=== PATIENT | male | born 1960 | race Two or more races ===

== ENCOUNTER 2018-12-31 22:10 | Inpatient (IN) | payer OTHER ==
[~2018-12-31] VITALS: Ht 175.3 cm; Wt 61.7 kg
[2018-12-31 22:37] LABS: BASOPHILS # (AUTO) 0.1 /CMM (0.0-0.2); BASOPHILS % (AUTO) 1.1 % (0.0-2.0); EOSINOPHILS % (AUTO) 0.6 % (0.0-6.0); HEMATOCRIT 41 % (39-51); HEMOGLOBIN 13.6 g/dL (13.5-17.5); LYMPHOCYTES # (AUTO) 2.7 /CMM (0.8-4.8); LYMPHOCYTES % (AUTO) 50.2 % (20.0-44.0); MEAN CORPUSCULAR HGB CONC 34 g/dl (31.0-36.0); MEAN CORPUSCULAR VOLUME 87 fL (80-96); MONOCYTES # (AUTO) 0.4 /CMM (0.1-1.30); MONOCYTES % (AUTO) 7.4 % (2.0-12.0); NEUTROPHILS # (AUTO) 2.2 /CMM (1.8-8.9); NEUTROPHILS % (AUTO) 40.7 % (43.0-81.0); PLATELET COUNT (AUTO) 352 /CMM (150-450); RED BLOOD CELL COUNT(AUTO) 4.69 MIL/uL (4.5-6.0); WHITE BLOOD COUNT (AUTO) 5.5 K/uL (4.3-11.0)
--- NOTE | 2018-12-31 22:38 | NUR ---
BBRA FROM HOME C/C R SHOULDER PAIN SINCE MORNING RADIATING TO THE CHEST W/ +SOB. PT STATES "I FEEL PALIPITATIONS". ADMITTS TO DRINKING ETOH. BS123. PT AAOX3, VSS. DENIES N/V, WEAKNESS, DIZZINESS. DR. MADDEN @ BS FOR EVAL. PLACED ON SOFTWARE SALES REPRESENTATIVE & WILL CONT TO MONITOR.
[2018-12-31 22:46] LABS: CALCIUM, SERUM 8.5 mg/dL (8.5-10.1); CARBON DIOXIDE 27 mmol/L (21-32); CHLORIDE 103 mmol/L (98-107); CREATININE 0.6 mg/dL (0.6-1.3); GLUCOSE 111 mg/dL (74-106); POTASSIUM 3.7 mmol/L (3.5-5.1); SODIUM SERUM 138 mmol/L (136-145); UREA NITROGEN, BLOOD 10 mg/dL (7-18)
[2018-12-31 22:54] LABS: MAGNESIUM 1.8 mg/dL (1.8-2.4)
[2018-12-31] MEDS ORDERED: THIAMINE HCL 100 MG TABLET PO ONE (23:00)
[2018-12-31] MEDS ORDERED: MAG HYDROX/AL HYDROX/SIMETH 30 ML UDC PO ONE (23:00)
[2018-12-31] MEDS ORDERED: CHLORDIAZEPOXIDE HCL 25 MG CAPSULE PO ONE (23:00)
[2018-12-31] MEDS ORDERED: ASPIRIN 81 MG TAB.CHEW PO ONE (23:00)
[2018-12-31] MEDS ORDERED: BLOOD SUGAR DIAGNOSTIC 1 EACH STRIP IN ONE (23:00)
[2018-12-31] MEDS ORDERED: CHLORDIAZEPOXIDE HCL 25 MG CAPSULE ONE (23:24)
[2018-12-31] MEDS ORDERED: MAG HYDROX/AL HYDROX/SIMETH 30 ML UDC ONE (23:24)
[2018-12-31] MEDS ORDERED: ASPIRIN EC 81 MG TABLET.DR PO ONE (23:25)
[2018-12-31] MEDS ORDERED: THIAMINE HCL 100 MG TABLET ONE (23:25)
[2018-12-31] MEDS ORDERED: ASPIRIN 81 MG TAB.CHEW ONE (23:26)
--- NOTE | 2018-12-31 23:32 | NUR ---
MEDICATED PER ERMD ORDER, PT DYLAN WELL.
--- NOTE | 2019-01-01 00:36 | NUR ---
PT RESTING IN BED WITH EYES OPEN. NO S/S OF ACUTE DISTRESS NOTED. PT STILL ON UNIX SYSTEM ADMINISTRATOR AND POX. WILL CONTINUE TO MONITOR PT
--- NOTE | 2019-01-01 02:40 | NUR ---
DR NOAH CASTILLO DR. TO
--- NOTE | 2019-01-01 02:59 | NUR ---
REPORT GIVEN TO VICE PRESIDENT CONSULTING SERVICESDOUG JACOBSEN FOR ABHISHEK.
[2019-01-01 03:50] VITALS: BP 150/79
[2019-01-01] MEDS ORDERED: IV NS 0.9% 1,000 ML IV PRN (03:55)
[2019-01-01 04:00] VITALS: BP 150/79
[2019-01-01] MEDS ORDERED: LORAZEPAM INJ 2 MG/ML VIAL IV PRN (04:00)
[2019-01-01] MEDS ORDERED: MAGNESIUM HYDROXIDE 30 ML UDC PO PRN (04:00)
[2019-01-01] MEDS ORDERED: Z GUARD REMEDY 2 OZ OINT TP PRN (04:00)
[2019-01-01] MEDS ORDERED: ZOLPIDEM TARTRATE 5 MG TABLET PO PRN (04:00)
[2019-01-01] MEDS ORDERED: ACETAMINOPHEN 325 MG TABLET PO PRN (04:00)
[2019-01-01] MEDS ORDERED: ONDANSETRON HCL/PF 4 MG/2 ML VIAL IVP PRN (04:00)
[2019-01-01] MEDS ORDERED: MAG HYDROX/AL HYDROX/SIMETH 30 ML UDC PO PRN (04:00)
--- NOTE | 2019-01-01 04:00 | NUR ---
TELE/RN OPENING NOTES PT RECEIVED FROM ER VIA CHITRA. ON ROOM AIR, BREATHING EVEN AND UNLABORED. IV TO RAC PATENT AND INTACT. PAIN NOTED TO RIGHT SHOULDER AND LOWER BACK. PLACED ON TELE MONITOR SHOWING SR 80'S. ORIENTED PT TO ROOM AND CALL LIGHT. BILATERAL UPPER SIDE RAILS IN PLACE. HOB ELEVATED. BELONGINGS LIST COMPLETED. WILL CONTINUE TO MONITOR
[2019-01-01] MEDS: ENOXAPARIN SODIUM 40 MG/0.4 ML DISP.SYRIN SQ SCH (04:31)
[2019-01-01] MEDS: HYDROCODONE/APAP 5/325MG 1 EACH TABLET PO PRN ×2 (04:33→22:34)
[2019-01-01 04:47] LABS: BASOPHILS # (AUTO) 0.1 /CMM (0.0-0.2); BASOPHILS % (AUTO) 2.2 % (0.0-2.0); EOSINOPHILS % (AUTO) 1.2 % (0.0-6.0); HEMATOCRIT 40 % (39-51); HEMOGLOBIN 13.5 g/dL (13.5-17.5); LYMPHOCYTES # (AUTO) 2.9 /CMM (0.8-4.8); LYMPHOCYTES % (AUTO) 51.7 % (20.0-44.0); MEAN CORPUSCULAR HGB CONC 34 g/dl (31.0-36.0); MEAN CORPUSCULAR VOLUME 86 fL (80-96); MONOCYTES # (AUTO) 0.4 /CMM (0.1-1.30); MONOCYTES % (AUTO) 7.6 % (2.0-12.0); NEUTROPHILS # (AUTO) 2.1 /CMM (1.8-8.9); NEUTROPHILS % (AUTO) 37.3 % (43.0-81.0); PLATELET COUNT (AUTO) 312 /CMM (150-450); RED BLOOD CELL COUNT(AUTO) 4.67 MIL/uL (4.5-6.0); WHITE BLOOD COUNT (AUTO) 5.6 K/uL (4.3-11.0)
[2019-01-01 05:02] LABS: ALANINE AMINOTRANSFERASE 38 U/L (12-78); ALBUMIN 3.6 g/dL (3.4-5.0); ALKALINE PHOSPHATASE 76 U/L (46-116); ASPARTATE AMINOTRANSFERASE 46 U/L (15-37); BILIRUBIN,TOTAL 0.3 mg/dL (0.2-1.0); CALCIUM, SERUM 8.5 mg/dL (8.5-10.1); CARBON DIOXIDE 28 mmol/L (21-32); CHLORIDE 106 mmol/L (98-107); CREATININE 0.7 mg/dL (0.6-1.3); GLUCOSE 93 mg/dL (74-106); IRON, SERUM 90 ug/dl (50-175); MAGNESIUM 1.9 mg/dL (1.8-2.4); PHOSPHORUS 3.6 mg/dL (2.5-4.9); SODIUM SERUM 143 mmol/L (136-145); TOTAL IRON BINDING CAPACITY 364 ug/dl (250-450); TOTAL PROTEIN, SERUM 7.1 g/dL (6.4-8.2); UREA NITROGEN, BLOOD 10 mg/dL (7-18)
[2019-01-01 05:10] LABS: CHOLESTEROL 193 mg/dL (<200); HDL CHOLESTEROL 84 mg/dL (40-60); LDL 93 mg/dL (0-99); THYROID STIMULATING HORMONE 2.868 uIU/mL (0.358-3.74); TRIGLYCERIDES 149 mg/dL (30-150)
--- NOTE | 2019-01-01 06:52 | NUR ---
TELE/RN CLOSING NOTES PT ASLEEP, BREATHING EVEN AND UNLABORED. NO S/S OF SOB OR PAIN AT THIS TIME. PRN NORCO APPEARS TO BE EFFECTIVE. PLACED ON SUPPLEMENTAL O2 AT 2LPM. TELE MONITOR READING SR WITH PAC 80'S. IV TO RAC PATENT AND INTACT RUNNING IVF ORDERED. KEPT PT COMFORTABLE POSSIBLE. IPHONE CHARGED AT NURSING STATION AND RETURNED TO PATIENT. NO SIGNIFICANT CHANGES DURING SHIFT. ALL NEEDS MET. BED REMAINS IN LOW/LOCKED POSITION WITH HOB ELEVATED AND BILATERAL UPPER SIDE RAILS IN PLACE. WILL ENDORSE TO DAY SHIFT RN ABHISHEK.
--- NOTE | 2019-01-01 07:30 | NUR ---
RECEIVED PT. ALERT AND ORIENTED X3,BENINESE AND AZERI SPEAKING.VS STABLE.NPO TILL SEEN BY DR. DEL VALLE.
[2019-01-01 08:00] VITALS: BP 131/85
--- NOTE | 2019-01-01 08:30 | NUR ---
DR. DEL VALLE IN.CT ANGIO OF HEART ORDERED. GIVEN FEW ICE CHIPS.COMMUNICATED WITH RADIOLOGY WITH PLANS TO DO CT BY 1000 AM.
[2019-01-01 11:10] VITALS: BP 146/84
[2019-01-01] MEDS: METOPROLOL TARTRATE 50 MG TABLET PO SCH ×2 (11:14→18:33)
--- NOTE | 2019-01-01 11:14 | NUR ---
GIVEN LOPRESSOR ORDERED.
[2019-01-01] MEDS ORDERED: K PHOS NEUTRAL 250 MG TABLET PO ONE (12:00)
--- NOTE | 2019-01-01 12:00 | NUR ---
NO CT YET,DTR. UPSET DEPT. CALLED.
[2019-01-01] MEDS ORDERED: IOHEXOL-350 100 ML VIAL IV ONE (12:20)
[2019-01-01] MEDS ORDERED: CT SWABBABLE VALVE TRANS SET 1 EA INFUS.SET MC ONE (12:20)
[2019-01-01] MEDS ORDERED: IV NS 0.9% 250 ML IV ONE (12:20)
[2019-01-01] MEDS ORDERED: METOPROLOL TARTRATE INJ 5 MG/5 ML AMPUL ONE (12:20)
[2019-01-01] MEDS ORDERED: NITROGLYCERIN 0.4 MG/TAB BOTTLE SL ONE (13:30)
[2019-01-01] MEDS ORDERED: METOPROLOL TARTRATE INJ 5 MG/5 ML AMPUL IVP ONE (13:30)
[2019-01-01] MEDS ORDERED: IV NS 0.9% 500 ML IV ONE (13:30)
--- NOTE | 2019-01-01 14:30 | NUR ---
ASSISTED TO BATHRM. SEVERAL TIMES IV INFUSING.FAMILY IN TO VISIT AND SON CALLING.
[2019-01-01 16:00] VITALS: BP 134/80
--- NOTE | 2019-01-01 16:30 | NUR ---
DTR. MIRZA IN REQUESTING CONTACT HER WITH CT REPORT OF HEART WELL REQUESTING A RT. SHOULDER X-RAY FROM FALL SUSTAINED SEVERAL YRS AGO.ALL INFO GIVEN TO SHALOM PUCKETT,ALONG WITH DTR'S PHONE #.STATES HE WILL CALL HER.
--- NOTE | 2019-01-01 18:00 | NUR ---
NO CHANGE IN STATUS.
[2019-01-01] MEDS: ASPIRIN 81 MG TAB.CHEW PO SCH (18:33)
--- NOTE | 2019-01-01 19:50 | NUR ---
RN OPENING NOTES RECEIVED REPORT FROM DAYSHIFT DOUG SERVIN. FOUND Pt ASLEEP, EASILY AWAKENED. NO S/S OF ACUTE DISTRESS OR SOB NOTED. RESPIRATIONS EVEN AND UNLABORED. Pt IS A/OX3, VERBAL, ABLE TO MAKE NEEDS KNOWN. SLOV[place]/TANZANIAN SPEAKING, UNDERSTANDS SOME CZECH. IV ACCESS ON RAC #18G. SAFETY MEASURES IN PLACE. BED LOW, LOCKED, HOB ELEVATED, SIDE RAILS UP, CALL LIGHT AND BEDSIDE TABLE WITHIN REACH. WILL CONTINUE TO MONITOR Pt's CONDITION AND SAFETY THROUGHOUT THE NIGHT.
[2019-01-01 20:00] VITALS: BP 141/69
[2019-01-02] MEDS: METOPROLOL TARTRATE 50 MG TABLET PO SCH ×3 (00:43→12:27)
[2019-01-02 04:00] VITALS: BP 130/81
[2019-01-02 04:35] LABS: BASOPHILS # (AUTO) 0.1 /CMM (0.0-0.2); EOSINOPHILS % (AUTO) 2.6 % (0.0-6.0); HEMATOCRIT 46 % (39-51); HEMOGLOBIN 15.5 g/dL (13.5-17.5); LYMPHOCYTES # (AUTO) 1.8 /CMM (0.8-4.8); LYMPHOCYTES % (AUTO) 30.3 % (20.0-44.0); MEAN CORPUSCULAR HGB CONC 33 g/dl (31.0-36.0); MEAN CORPUSCULAR VOLUME 87 fL (80-96); MONOCYTES # (AUTO) 0.6 /CMM (0.1-1.30); NEUTROPHILS # (AUTO) 3.3 /CMM (1.8-8.9); NEUTROPHILS % (AUTO) 56.1 % (43.0-81.0); PLATELET COUNT (AUTO) 319 /CMM (150-450); RED BLOOD CELL COUNT(AUTO) 5.33 MIL/uL (4.5-6.0); WHITE BLOOD COUNT (AUTO) 5.9 K/uL (4.3-11.0)
[2019-01-02 04:58] LABS: CALCIUM, SERUM 9.5 mg/dL (8.5-10.1); CREATININE 0.8 mg/dL (0.6-1.3); PHOSPHORUS 3.8 mg/dL (2.5-4.9); POTASSIUM 4.4 mmol/L (3.5-5.1)
--- NOTE | 2019-01-02 05:00 | NUR ---
RN NOTES Pt REQUESTING FOR XRAY OF HIS RT SHOULDER. WILL ENDORSE TO DAYSHIFT RN TO F/U WITH MD IN AM.
[2019-01-02] MEDS: ENOXAPARIN SODIUM 40 MG/0.4 ML DISP.SYRIN SQ SCH (05:05)
--- NOTE | 2019-01-02 06:47 | NUR ---
RN CLOSING NOTES NO SIGNIFICANT CHANGES IN Pt's CONDITION DURING THE NIGHT. Pt REMAINS STABLE PER BASELINE. NO S/S OF ACUTE DISTRESS OR SOB NOTED DURING THE SHIFT. ALL NEEDS MET AND ATTENDED TO. Pt RESTING IN BED. RESPIRATIONS EVEN AND UNLABORED. SAFETY MEASURES IN PLACE. BED LOW, LOCKED, HOB ELEVATED SIDE RAILS UP, CALL LIGHT AND BEDSIDE TABLE WITHIN REACH. BED ALARM ON. WILL ENDORSE TO DAYSHIFT RN FOR Pt's ABHISHEK.
--- NOTE | 2019-01-02 07:35 | NUR ---
RN NOTES PATIENT A/OX3, BREATHING EVEN AND UNLABORED, STILL C/O RIGHT SHOULDER PAIN, WOULD LIKE TO REQUEST TO MD RE: A RIGHT SHOULDER XRAY. NEEDS ATTENDED, CALL LIGHT WITHIN REACH, WILL CONTINUE TO MONITOR.
[2019-01-02 08:00] VITALS: BP 128/75
[2019-01-02] MEDS: ASPIRIN 81 MG TAB.CHEW PO SCH (08:06)
[2019-01-02 12:27] VITALS: BP 121/57
--- NOTE | 2019-01-02 15:44 | NUR ---
RN NOTES PATIENT A/OX4, BREATHING EVEN AND UNLABORED, NO SOB NOTED, PATIENT STILL C/O CHRONIC MILD PAIN ON HIS RIGHT SHOULDER. SKIN ASSESSMENT COMPLETED, SKIN DRY AND INTACT, BELONGINGS RECONCILED AND COMPLETE, DENTURES IN PLACED, CELLPHONE AT BEDSIDE, NO JEWELRY. DISCHARGE INSTRUCTIONS PROVIDED, SPOKE TO DAUGHTER OVER THE PHONE AND GAVE DISCHARGE INSTRUCTIONS TO FOLLOW UP WITH PMD RE: RIGHT SHOULDER PAIN. BOTH VERBALIZED UNDERSTANDING. PIV REMOVED AND APPLIED GAUZE AND TAPE. NEEDS ATTENDED. AWAITING FOR FOR TRANSPORTATION.
--- NOTE | 2019-01-02 16:15 | NUR ---
HISTOTECHNOLOGIST SUPERVISOR PATIENT LEFT IN STABLE CONDITION AMBULATING, ACCOMPANIED BY .
== END 2019-01-02 16:15 | disposition home or self-care (01) | DRG 203 ==
LOC: ER 22:12 → TELE 01-01 02:35 → MED 01-01 08:42
PROVIDERS: ADMIT Hospitalist; ATTEND Hospitalist
DX: M94.0 Chondrocostal junction syndrome [Tietze] (principal); F10.10 Alcohol abuse, uncomplicated; F17.200 Nicotine dependence, unspecified, uncomplicated; I25.10 Atherosclerotic heart disease of native coronary artery without angina pectoris; I25.2 Old myocardial infarction; M25.511 Pain in right shoulder; Z87.81 Personal history of (healed) traumatic fracture
CPT/HCPCS: 36415; 71045-TC; 75574; 80048-TC; 80053-TC; 80061-TC; 82550-TC; 82962-TC; 83540-TC; 83690-TC; 83735-TC; 84100-TC; 84443-TC; 84484-TC; 85025-TC; 87081-TC; 93307-TC; G0378; G0480; J1650; J3490; J7030; J7050; Q9967